=== PATIENT | female | born 1995 | race Caucasian/White ===

== ENCOUNTER 2018-07-28 09:28 | Emergency (ER) | payer MEDICAID, OTHER ==
[2018-07-28] MEDS ORDERED: diphenhydrAMINE 25 MG CAP PO ONE (10:12)
--- NOTE | 2018-07-28 10:12 | EDPHY ---
H & P Time Seen by Provider: 07/28/18 09:33 HPI/ROS: CHIEF COMPLAINT: Nasal congestion HISTORY OF PRESENT ILLNESS: Patient states she has had a cold since over a week ago. She states it was starting to get better but by Sunday she developed more cough, more mucus. She states that at night because of for nasal congestion it makes it hard to breathe. She tried Neti pot but that did not work very well. She denies fever. She did not get a flu shot. She denies any body aches or rash. She has had no nausea or vomiting. She states she is living with her grandmother and is allergic to dogs and cats. The grandmother has animals in the house as well as a lot of disorder which the patient thinks has been exacerbating her allergic symptoms. REVIEW OF SYSTEMS: Negative except per HPI. General Appearance: Alert, no distress. Eyes: Pupils equal and round no icterus EENT: Oropharynx slightly injected, very mild edema to the uvula. Uvula midline. No exudate or tonsillar hypertrophy. No lymphadenopathy. Respiratory: No respiratory distress, lungs clear to auscultation bilaterally Cardiac: Regular rate and rhythm no murmurs rubs or gallops. Neurological: Awake, alert, no focal deficits. Skin: Warm and dry, no rashes. Musculoskeletal: Neck is supple nontender. Extremities are symmetrical, full range of motion, no edema. Psychiatric: Patient is oriented X 3, there is no agitation. Medical/surgical history: ADD. Social history: Nonsmoker. Smoking Status: Never smoked Constitutional: Initial Vital Signs Temperature (C) 36.6 C 07/28/18 09:45 Heart Rate 74 07/28/18 09:45 Respiratory Rate 20 07/28/18 09:45 Blood Pressure 124/66 H 07/28/18 09:45 O2 Sat (%) 97 07/28/18 09:45 O2 Delivery Mode Room Air Allergies/Adverse Reactions: No Known Allergies Allergy (Unverified 02/01/14 20:47) Home Medications: Medication Instructions Recorded NK [No Known Home Meds] 02/01/14 Medical Decision Making Differential Diagnosis: Differential diagnosis includes but is not limited to upper respiratory infection, sinusitis, allergic rhinitis, bronchitis. After evaluation patient with signs and symptoms consistent with viral upper respiratory infection possible with allergic component. No signs of serious bacterial illness, airway obstruction, anaphylaxis. Discussed multiple [id number] treatments , follow-up, return precautions. Stable for discharge. - Data Points Medications Given: Discontinued Medications Diphenhydramine HCl (Benadryl) 50 mg PO EDNOW ONE Stop: 07/28/18 10:13 Last Admin: 07/28/18 10:20 Dose: 50 mg Departure - Departure Disposition: Home, Routine, Self-Care Clinical Impression: Upper respiratory infection, viral Allergic rhinitis due to allergen Qualifiers: Allergic rhinitis trigger: unspecified Allergic rhinitis seasonality: non- seasonal Qualified Code(s): J30.89 - Other allergic rhinitis Condition: Good Instructions: Allergic Rhinitis (ED) Additional Instructions: Try Flonase [id number] twice a day as discussed. Use this medication for at least 2 weeks. He can also try Sudafed, Benadryl, Claritin [id number] for allergies and congestion. Continue the Neti pot. Return to the emergency department if he develops high fevers, difficulty breathing, chest pain or other concerning new symptoms. You should definitely follow up with her primary care doctor in 7-10 days to discuss your allergies. Referrals: MARILYN CHAVEZ,. [Primary Care Provider] - As per Instructions
[2018-07-28 15:56] VITALS: BP 122/62
== END 2018-07-28 10:21 | disposition home or self-care (01) ==
LOC: CED 09:28
DX: J06.9 Acute upper respiratory infection, unspecified (principal); J30.89 Other allergic rhinitis